=== PATIENT | male | born 1950 | race Caucasian/White ===

== ENCOUNTER 2019-01-19 07:05 | Emergency (ER) | payer MEDICARE ==
[2019-01-19] MEDS ORDERED: LISI20TA29 PO (07:10)
[2019-01-19] MEDS ORDERED: FLUT16SP19 NS (07:10)
[2019-01-19] MEDS ORDERED: ALBU8.5H IH (07:10)
[2019-01-19] MEDS ORDERED: AMLO-127 PO (07:10)
--- NOTE | 2019-01-19 07:13 | ER Report ---
History and Physical Time Seen By MD: 07:10 HPI/ROS CHIEF COMPLAINT: Shortness of breath HISTORY OF PRESENT ILLNESS: Patient is a 68-year-old male who presents to the emergency department with complaint of chest tightness and difficulty breathing with exacerbation of reactive airways disease. Patient for the last year or so has had episodic infections usually with bronchitis but also affecting the sinuses. Patient did work included winds was exposed to find particle dust. He is never formally been diagnosed with any reactive airways disease. He is recently had sinus surgery and has had numerous courses of antibiotics over the past year. He is originally from [facility] [place] [facility]. This morning he states he was having difficulty with coughing catching his breath. He denies ever having issues with change in altitude REVIEW OF SYSTEMS: Constitutional: No fever, no chills. Eyes: No discharge. ENT: No sore throat. Cardiovascular: No chest pain, no palpitations. Respiratory: Cough productive of some clear to yellow sputum Gastrointestinal: No abdominal pain, no vomiting. Genitourinary: No hematuria. Musculoskeletal: No back pain. Skin: No rashes. Neurological: No headache. Allergies: Coded Allergies: levofloxacin (Verified Adverse Reaction, Intermediate, tendon, 01/19/19) Home Meds Active Scripts Doxycycline Hyclate (DOXYCYCLINE HYCLATE) 100 Mg Tablet, 100 MG PO BID for 10 Days, #20 TAB 0 Refills Prov:RONALD SOTO MD 01/19/19 Albuterol Sulfate 0.083% (ALBUTEROL SULFATE 0.083%) 2.5 Mg/3 Ml Vial.neb, 2.5 MG INH Q6H, #1 BOX 0 Refills Prov:RONALD SOTO MD 01/19/19 Reported Medications Albuterol Sulfate 90 Mcg/Act (PROAIR HFA 90 MCG/ACT) 8.5 Gm Hfa.aer.ad, 1-2 PUFF IH 3-4XD, INHALER 01/19/19 Fluticasone Prop 50 Mcg Ns (FLONASE 50 MCG NS) 16 Gm [place].susp, 1 SPRAY NS BID, BOT 01/19/19 Lisinopril (LISINOPRIL) 20 Mg Tablet, 20 MG PO QDAY, TAB 01/19/19 Amlodipine Besylate (AMLODIPINE BESYLATE) 10 Mg Tablet, 1 TAB PO QDAY, TAB 01/19/19 Past Medical/Surgical History Past medical history for reactive airways disease, hypertension Constitutional Vital Sign - Last 24 Hours 01/19/19 01/19/19 01/19/19 01/19/19 07:11 07:30 07:41 07:41 Temp 97.8 Pulse 72 ??? 73 Resp 15 20 B/P (MAP) 147/99 117/86 (96) Pulse Ox 91 92 92 O2 Delivery Room Air Nasal Cannula O2 Flow Rate 1.5 01/19/19 01/19/19 01/19/19 01/19/19 08:00 08:30 08:38 08:38 Pulse ??? 39 77 Resp 20 B/P (MAP) 127/79 (95) 131/81 (98) Pulse Ox 91 96 O2 Delivery Nasal Cannula O2 Flow Rate 1.5 Physical Exam General/Constitutional: Patient is awake, alert, nontoxic and in no acute respiratory distress. Head: Normocephalic and atraumatic. Eyes: Conjunctival clear, Pupils are equal and reactive to light. Extraocular muscles are intact and symmetrical. Sclera are clear and anicteric. Ears:External canals are clear. Tympanic membranes are clear with normal landmarks and light reflex. Nares: No rhinorrhea or bleeding. Turbinates are pink and moist. Oropharyngeal: Mucous membranes are moist. There is no pharyngeal erythema or exudate. There are no palatal petechiae. Uvula is midline and symmetrical. Neck: Supple, no adenopathy. Cardiovascular: Heart is regular rate and rhythm without audible murmurs, rubs or gallops. Pulmonary: Lungs are noted to have both inspiratory and expiratory wheeze with bilateral rhonchi. Chest rise is symmetrical. No accessory muscle use is noted Abdomen: Soft, nontender, no guarding or peritoneal signs. Extremities: No gross deformities, No peripheral cyanosis. Able to move all 4 extremities. Neuro: Alert and oriented X3, Skin: No rashes, skin is warm dry and well perfused. Medical Decision Making Data Points Result Diagram: 01/19/19 0709 01/19/19 0709 Laboratory Hematology Test 01/19/19 07:09 Red Blood Count 4.87 M/uL (4.00-5.60) Mean Corpuscular Volume 92.3 fL (80.0-96.0) Mean Corpuscular Hemoglobin 33.2 pg (26.0-33.0) Mean Corpuscular Hemoglobin Concent 36.0 g/dL (32.0-36.0) Red Cell Distribution Width 13.5 % (11.5-14.5) Mean Platelet Volume 7.6 fL (7.2-11.1) Neutrophils (%) (Auto) 62.3 % (39.4-72.5) Lymphocytes (%) (Auto) 22.0 % (17.6-49.6) Monocytes (%) (Auto) 7.8 % (4.1-12.4) Eosinophils (%) (Auto) 6.9 % (0.4-6.7) Basophils (%) (Auto) 1.0 % (0.3-1.4) Nucleated RBC Relative Count (auto) 0.0 /100WBC Neutrophils # (Auto) 4.0 K/uL (2.0-7.4) Lymphocytes # (Auto) 1.4 K/uL (1.3-3.6) Monocytes # (Auto) 0.5 K/uL (0.3-1.0) Eosinophils # (Auto) 0.4 K/uL (0.0-0.5) Basophils # (Auto) 0.1 K/uL (0.0-0.1) Nucleated RBC Absolute Count (auto) 0.00 K/uL Sodium Level 141 mmol/L (137-145) Potassium Level 4.0 mmol/L (3.5-5.0) Chloride Level 104 mmol/L (98-107) Carbon Dioxide Level 25 mmol/L (22-30) Blood Urea Nitrogen 15 mg/dl (9-21) Creatinine 1.10 mg/dl (0.66-1.25) Glomerular Filtration Rate Calc > 60.0 Random Glucose 99 mg/dl (75-110) Calcium Level 9.5 mg/dl (8.4-10.2) Chemistry Test 01/19/19 07:09 White Blood Count 6.4 k/uL (4.5-11.0) Red Blood Count 4.87 M/uL (4.00-5.60) Hemoglobin 16.2 g/dL (14.0-18.0) Hematocrit 44.9 % (42.0-52.0) Mean Corpuscular Volume 92.3 fL (80.0-96.0) Mean Corpuscular Hemoglobin 33.2 pg (26.0-33.0) Mean Corpuscular Hemoglobin Concent 36.0 g/dL (32.0-36.0) Red Cell Distribution Width 13.5 % (11.5-14.5) Platelet Count 225 K/uL (150-450) Mean Platelet Volume 7.6 fL (7.2-11.1) Neutrophils (%) (Auto) 62.3 % (39.4-72.5) Lymphocytes (%) (Auto) 22.0 % (17.6-49.6) Monocytes (%) (Auto) 7.8 % (4.1-12.4) Eosinophils (%) (Auto) 6.9 % (0.4-6.7) Basophils (%) (Auto) 1.0 % (0.3-1.4) Nucleated RBC Relative Count (auto) 0.0 /100WBC Neutrophils # (Auto) 4.0 K/uL (2.0-7.4) Lymphocytes # (Auto) 1.4 K/uL (1.3-3.6) Monocytes # (Auto) 0.5 K/uL (0.3-1.0) Eosinophils # (Auto) 0.4 K/uL (0.0-0.5) Basophils # (Auto) 0.1 K/uL (0.0-0.1) Nucleated RBC Absolute Count (auto) 0.00 K/uL Glomerular Filtration Rate Calc > 60.0 Calcium Level 9.5 mg/dl (8.4-10.2) EKG/Imaging Imaging [facility] PATIENT NAME: Javi Fierro : 1950 MR: [id number] V: [id number] EXAM DATE: [id number] ORDERING PHYSICIAN: RONALD SOTO TECHNOLOGIST: Location: [facility] Patient: Javi Fierro : 1950 Visit/Account:[id number] Date of Sevice: 01/19/2019 EXAMINATION: CTA Chest With Contrast 01/19/2019 7:23 AM HISTORY: RESP DISTRESS TECHNIQUE: Pulmonary embolus protocol - Thin-slice axial imaging of the chest was performed during maximal pulmonary arterial opacification with intravenous nonionic iodinated contrast. 3D slab MIPs and 2D reconstructions in the coronal and sagittal planes were performed. Lactation Specialist images have been stored on PACS. Contrast: 75 mL of IV Isovue 370. One of the following dose optimization techniques was utilized in the performanc e of this exam: Automated exposure control; adjustment of the mA and/or kV according to the patient's size; or use of an iterative reconstruction technique. Specific details can be referenced in the facility's radiology CT exam operational policy. COMPARISON STUDIES: none. FINDINGS: Angiographic Findings: Pulmonary arteries: There are no filling defects in the main, right, left, lobar, segmental or visualized sub-segmental branches of the pulmonary arterial system Other vasculature: Ascending thoracic aorta 4.2 x 4.0 cm. No substantial visible coronary calcifications. Additional non-angiographic findings: Lungs / pleura: Minimal bronchial wall thickening. Scattered areas of e ndobronchial material mostly in the lower lobes with lesser upper lung involvement. No focal airspace infiltrate. Mediastinum / denise: negative Heart / pericardium: negative Musculoskeletal / Body wall: Mild bilateral gynecomastia. Lymph node assessment: negative Lower neck: negative Upper abdomen: Small exophytic upper pole cortical cyst on the left kidney. IMPRESSION: 1. Negative CTA evaluation for PE. 2. Endobronchial material bilaterally mostly in the lower lobes with minimal bronchial wall thickening of uncertain chronicity. Pattern may reflect bronchitis. 3. Mild aneurysmal dilatation of the ascending thoracic aorta. Report Dictated By: Eliseo Swain MD at 01/19/2019 9:16 AM Report E-Signed By: Eliseo Swain MD at 01/19/2019 9:32 AM WSN:[id number] ED Course/Re-evaluation ED Course 01/19/2019 7:29:46 am patient with reactive airways disease symptoms and physical exam findings. Doubt acute coronary syndrome or pulmonary embolism, certainly chronic bronchitis would be something to consider along with pleurisy also inflammation secondary to prolonged exposure to particulate matter such is clear with fine dust particles. I will give breathing treatments, IV steroids with the intent of having the patient on a prolonged course of oral steroids taper. We'll do imaging of the chest check CBC and BMP will also give Zyrtec. 01/19/2019 8:11:46 am patient has complete flow was 350, predicted is 568. We are awaiting results of the basic metabolic panel however has been informed by the staff that the machine is currently not working. Plan at this time will be to continue with the breathing treatments over the course of the hour hopefully the machine would be up and running at that time. If it is not the may choose to just do a CT scan without IV contrast looking specifically for known pneumonia. However I would like to get a look at the pulmonary vasculature if possible. Discussed this with the patient and spouse. 01/19/2019 9:52:11 am patient improved after DuoNeb treatments with Home on Albuterol, Prednisone Taper Decision to Disposition Date: Jan 19, 2019 Decision to Disposition Time: 09:53 Depart Departure Latest Vital Signs Vital Signs Date Time Temp Pulse Resp B/P (MAP) Pulse Ox O2 Delivery O2 Flow Rate FiO2 01/19/19 08:38 77 20 01/19/19 08:38 96 Nasal Cannula 1.5 01/19/19 08:30 131/81 (98) 01/19/19 07:11 97.8 Impression: Primary Impression: Reactive airway disease with acute exacerbation Condition: Improved Disposition: HOME OR SELF-CARE New Scripts Doxycycline Hyclate (DOXYCYCLINE HYCLATE) 100 Mg Tablet 100 MG PO BID for 10 Days, #20 TAB 0 Refills Prov: RONALD SOTO MD 01/19/19 Albuterol Sulfate 0.083% (ALBUTEROL SULFATE 0.083%) 2.5 Mg/3 Ml Vial.neb 2.5 MG INH Q6H, #1 BOX 0 Refills Prov: RONALD SOTO MD 01/19/19 Departure Forms: ER Transition Record, Home Oxygen, Nebulizer RX, Home Oxygen Company Chosen by Patient: Durable Medical Equipment-Oxygen: Nebulizer Reason for Use/Diagnosis: chronic bronchitis Start Date of the Order: Jan 19, 2019 Dosage or Concentration (if applicable) - LPM: 0 Route of Administration (if applicable): Other Duration Home O2 Required: 7 Duration Units: Days Room Air Oxygen Saturation: 91 ER Prescribing Physician's Name: Ronald Soto NPI Numbers for Local ER MDs: Brittany [id number] Medications Reconciliation, Patient Portal Information Patient Instructions: Reactive Airways Disease (ED) Additional Instructions: Take your prednisone taper starting with 20 mg tablet prescriptions and take as directed. Once this is completed switched to the 5 mg tablet and take as directed. Use your albuterol nebulizer, 1 vial every 6 hours for the next 72 hours then every 4-6 hours as needed for cough or shortness of breath for the next week Obtain an [id number] nonsedating antihistamine such as Lisseth or Zyrtec and take as directed Problem Qualifiers Primary Impression: Reactive airway disease with acute exacerbation Asthma severity: moderate Asthma persistence: persistent Qualified Codes: J45.41 - Moderate persistent asthma with (acute) exacerbation RONALD SOTO MD Jan 19, 2019 07:13
[2019-01-19] MEDS ORDERED: CETIRIZINE HCL 10 MG TAB PO ONE (07:25)
[2019-01-19] MEDS ORDERED: methylPREDNIS SUCC 125 MG/2ML IVP ONE (07:25)
[2019-01-19 07:30] LABS: PLATELET COUNT, AUTOMATED 225 K/uL (150-450)
[2019-01-19] MEDS ORDERED: IOPAMIDOL 76% 100 ML INFUS BTL 100 ML ONE (07:40)
[2019-01-19] MEDS: ALBUTEROL/IPRATROPIUM 3 ML NEB NEB SCH ×3 (07:40→08:35)
[2019-01-19] MEDS ORDERED: NS(*) 0.9% 50 ML BAG 50 ML ONE (07:41)
--- NOTE | 2019-01-19 09:39 | RADIOLOGY IMAGING REPORT ---
FACILITY: [facility] PATIENT NAME: Javi Fierro : 1950 MR: [id number] V: [id number] EXAM DATE: ORDERING PHYSICIAN: RONALD URRUTIA TECHNOLOGIST: Location[place] [facility] [place] Patient: Javi Fierro : 1950 Visit/Account:[id number] Date of Sevice: 01/19/2019 EXAMINATION: CTA Chest With Contrast 01/19/2019 7:23 AM HISTORY: RESP DISTRESS TECHNIQUE: Pulmonary embolus protocol - Thin-slice axial imaging of the chest was performed during maximal pulmonary arterial opacification with intravenous nonionic iodinated contrast. 3D slab MIPs a nd 2D reconstructions in the coronal and sagittal planes were performed. Assistant Printer Floor Covering images have b een stored on PACS. Contrast: 75 mL of IV Isovue 370. One of the following dose optimization techniques was utilized in the performance of this exam: Autom ated exposure control; adjustment of the mA and/or kV according to the patient's size; or use of an i terative reconstruction technique. Specific details can be referenced in the facility's radiology C T exam operational policy. COMPARISON STUDIES: none. FINDINGS: Angiographic Findings: Pulmonary arteries: There are no filling defects in the main, right, left, lobar, segmental or visual ized sub-segmental branches of the pulmonary arterial system Other vasculature: Ascending thoracic aorta 4.2 x 4.0 cm. No substantial visible coronary calcific ations. Additional non-angiographic findings: Lungs / pleura: Minimal bronchial wall thickening. Scattered areas of endobronchial material mostly in the lower lobes with lesser upper lung involvement. No focal airspace infiltrate. Mediastinum / denise: negative Heart / pericardium: negative Musculoskeletal / Body wall: Mild bilateral gynecomastia. Lymph node assessment: negative Lower neck: negative Upper abdomen: Small exophytic upper pole cortical cyst on the left kidney. IMPRESSION: 1. Negative CTA evaluation for PE. 2. Endobronchial material bilaterally mostly in the lower lobes with minimal bronchial wall thickeni ng of uncertain chronicity. Pattern may reflect bronchitis. 3. Mild aneurysmal dilatation of the ascending thoracic aorta. Report Dictated By: Eliseo Swain MD at 01/19/2019 9:16 AM Report E-Signed By: Eliseo Swain MD at 01/19/2019 9:32 AM [id number]
[2019-01-19 10:00] VITALS: BP 138/81
[2019-01-19] MEDS ORDERED: DOXY-179 PO (10:00)
[2019-01-19] MEDS ORDERED: ALBU2.5V36 INH (10:00)
== END 2019-01-19 10:24 | disposition home or self-care (01) ==
LOC: ER 07:17
DX: J45.41 Moderate persistent asthma with (acute) exacerbation (principal)
CPT/HCPCS: 71275; 85025; 94640; 96374; 99284; A9270; J2930; J7050; J7620; Q9967; 82310; 82374; 82435; 82565; 82947; 84132; 84295; 84520